=== PATIENT | male | born 1965 | race Caucasian/White ===

== ENCOUNTER → 2017-12-28 | Outpatient (CLI) | payer BC | END | disposition home or self-care (01) | LOC: LAB 12:38 | DX: Z12.11 Encounter for screening for malignant neoplasm of colon (principal) ==

== ENCOUNTER → 2018-11-10 | Outpatient (CLI) | payer BC | END | disposition home or self-care (01) | LOC: US 09:17 | DX: M25.472 Effusion, left ankle (principal); M79.89 Other specified soft tissue disorders ==

== ENCOUNTER → 2020-11-12 | Outpatient (CLI) | payer BC | END | disposition home or self-care (01) | LOC: RAD 10:35 | PROVIDERS: ATTEND Chiropractor Orthopedic | DX: M25.462 Effusion, left knee (principal) ==